=== PATIENT | male | born 2000 | race Caucasian/White ===

== ENCOUNTER 2023-04-27 15:34 | Emergency (ER) | payer OTHER ==
[2023-04-27 15:40] VITALS: BP 124/76; PULSE 114; RESP 18; TEMP 98.2; BMI 31.6
== END 2023-04-27 18:09 | disposition home or self-care (01) ==
LOC: JERFT 15:34
PROC: 3E0T3BZ Introduction of Anesthetic Agent into Peripheral Nerves and Plexi, Percutaneous Approach (ICD-10-PCS; principal; 2023-04-27)
DX: S92.511A Displaced fracture of proximal phalanx of right lesser toe(s), initial encounter for closed fracture (principal); W22.09XA Striking against other stationary object, initial encounter
CPT/HCPCS: 73630-TC-LT; 73660-TC-LT-FY; 99284-25